=== PATIENT | female | born 1995 | race Two or more races ===

== ENCOUNTER 2020-02-15 12:37 | Outpatient (CLI) | payer OTHER | END 2020-02-15 14:11 | disposition home or self-care (01) | LOC: SONOGRAMA 12:37 | PROVIDERS: ATTEND Pathology Anatomic Pathology & Clinical Pathology | DX: E04.1 Nontoxic single thyroid nodule (principal) ==

== ENCOUNTER 2020-12-09 08:45 | Outpatient (CLI) | payer OTHER | END 2020-12-09 09:03 | disposition home or self-care (01) | LOC: SONOGRAMA 08:45 | PROVIDERS: ATTEND Pathology Anatomic Pathology & Clinical Pathology | DX: E04.1 Nontoxic single thyroid nodule (principal) ==